=== PATIENT | male | born 1960 | race American Indian/Alaskan Native ===

== ENCOUNTER 2017-12-15 12:27 | Emergency (ER) | payer SELFPAY ==
[2017-12-15 13:18] VITALS: BP 149/102
--- NOTE | 2017-12-15 14:56 | Emergency Department Report ---
- General Chief Complaint: Upper Respiratory Infection Stated Complaint: ALLERGIES Time Seen by Provider: 12/15/17 14:52 Source: patient Mode of arrival: Ambulatory Limitations: No Limitations - History of Present Illness Initial Comments: 57-year-old [place] male comes to the emergency room complaining of seasonal allergy symptoms. Patient perceives has watery eyes sneezing itchy eyes and nasal congestion and intermittent headaches. Patient denies any fever chills no nausea no vomiting or abdominal pain no chest pain. Patient presses tried [id number] medications without resolution. Patient recently moved here from [place] and has been complaining of symptoms since . Patient has no past medical history currently takes no medications on a daily basis and have no known drug allergies. MD Complaint: rhinorrhea, nasal congestion Improves With: nothing Worsens With: nothing Context: recent travel Associated Symptoms: denies other symptoms Treatments Prior to Arrival: other (OTC allergy medicine) - Related Data Previous Rx's Medication Instructions Recorded Last Taken Type Ketotifen Fumarate [Zaditor] 1 drop OP QDAY #1 bottle 12/15/17 Unknown Rx Loratadine [Claritin] 10 mg PO DAILY #30 tablet 12/15/17 Unknown Rx Triamcinolone Acetonide [Nasacort 16.9 ml NS QDAY #1 bottle 12/15/17 Unknown Rx SPRAY] Allergies Allergy/AdvReac Type Severity Reaction Status Date / Time No Known Allergies Allergy Unverified 12/15/17 13:18 ED Review of Systems ROS: Stated complaint: ALLERGIES Other details as noted in HPI Constitutional: denies: chills, fever Eyes: other (watery and itchy eyes) ENT: congestion, other (rhinorrhea, sneezing) Respiratory: cough (intermittent) Cardiovascular: denies: chest pain, palpitations Skin: denies: rash, lesions Neurological: headache (intermittent) Psychiatric: denies: anxiety, depression Hematological/Lymphatic: denies: easy bleeding, easy bruising ED Past Medical Hx - Past Medical History Previous Medical History?: No - Surgical History Past Surgical History?: No - Social History Smoking Status: Current Every Day Smoker Substance Use Type: None - Medications Home Medications: Home Medications Medication Instructions Recorded Confirmed Last Taken Type Ketotifen Fumarate [Zaditor] 1 drop OP QDAY #1 bottle 12/15/17 Unknown Rx Loratadine [Claritin] 10 mg PO DAILY #30 tablet 12/15/17 Unknown Rx Triamcinolone Acetonide [Nasacort 16.9 ml NS QDAY #1 bottle 12/15/17 Unknown Rx SPRAY] ED Physical Exam - General Limitations: No Limitations - Eye Eye exam: Present: conjunctival injection - ENT ENT exam: Present: mucous membranes moist - Neck Neck exam: Present: normal inspection - Respiratory Respiratory exam: Present: normal lung sounds bilaterally. Absent: respiratory distress - Cardiovascular Cardiovascular Exam: Present: regular rate, normal rhythm. Absent: systolic murmur, diastolic murmur, rubs, gallop - GI/Abdominal GI/Abdominal exam: Present: soft, normal bowel sounds - Back Exam Back exam: Present: normal inspection, full ROM - Neurological Exam Neurological exam: Present: alert, oriented X3 - Psychiatric Psychiatric exam: Present: normal affect, normal mood ED Course Vital Signs 12/15/17 13:14 Temperature 98.8 F Pulse Rate 94 H Respiratory 18 Rate Blood Pressure 149/102 O2 Sat by Pulse 97 Oximetry ED Medical Decision Making - Medical Decision Making Patient's been evaluated for this provider fast track. I discussed the patient is appears to be allergic rhinitis. I will place patient on Claritin [id number] , Zaditor for allergy this is a mass cell stabilizer. And Nasacort which is a steroid nasal spray. Discussed the patient has symptoms persists or gets worse she should follow-up with a primary care provider I have listed wanted his discharge noticed. Critical care attestation.: If time is entered above; I have spent that time in minutes in the direct care of this critically ill patient, excluding procedure time. ED Disposition Clinical Impression: Allergic rhinitis Qualifiers: Allergic rhinitis trigger: pollen Allergic rhinitis seasonality: seasonal Qualified Code(s): J30.1 - Allergic rhinitis due to pollen Disposition: DC-01 TO HOME OR SELFCARE Is pt being admited?: No Does the pt Need Aspirin: No Condition: Stable Instructions: Allergic Rhinitis (ED) Additional Instructions: Please take medication as prescribed. If symptoms persist or gets worse with follow-up to primary care provider. Prescriptions: Ketotifen Fumarate [Zaditor] 1 drop OP QDAY #1 bottle Loratadine [Claritin] 10 mg PO DAILY #30 tablet Triamcinolone Acetonide [Nasacort SPRAY] 16.9 ml NS QDAY #1 bottle Referrals: [facility] [Provider Group] - 3-5 Days Forms: Work/School Release Form(ED)
== END 2017-12-15 15:04 | disposition home or self-care (01) ==
LOC: ED 12:27
DX: J30.9 Allergic rhinitis, unspecified (principal); F17.200 Nicotine dependence, unspecified, uncomplicated
CPT/HCPCS: 99281